=== PATIENT | female | born 2000 | race Two or more races ===

== ENCOUNTER 2025-03-23 07:29 | Emergency (ER) | payer OTHER ==
[~2025-03-23] VITALS: Ht 170.2 cm; Wt 68.5 kg
[2025-03-23 10:06] LABS: BASO % 0.9 % (0.1-1.2); EOS # 0.06 (0.04-0.54); EOS % 0.7 % (0.7-7.0); LYMPH # 1.82 (1.18-3.74); LYMPH % 22.2 % (19.3-53.1); MEAN PLATELET VOLUME 9.00 fl (9.4-12.4); MONO # 0.71 (0.24-0.82); MONO % 8.6 % (4.7-12.5); NEUT # 5.54 (1.56-6.13); NEUT % 67.5 % (34.0-71.1); RED CELL DISTRIBUTION WIDTH 13.1 % (11.6-14.4)
[2025-03-23 10:36] LABS: ALT/SGPT 27.0 U/L (12-78); AST/SGOT 13.0 U/L (15-37); BILIRUBIN TOTAL 0.69 mg/dL (0.3-1.2); BUN CREA RATIO 20.0 (7.0-25.0); CREATININE SERUM 0.85 mg/dL (0.55-1.02); GFR 80.84; GLOBULINA 4.0 G/DL (2.4-3.5); GLUCOSE FASTING 78.0 mg/dL (65-100); OSMOLALITY SERUM 280.0 MOSM/KG (275-295)
[2025-03-23 11:32] LABS: URINE APPEARANCE Clear; URINE BILIRRUBIN Negative (NEGATIVE); URINE BLOOD Negative; URINE COLOR Yellow; URINE GLUCOSE Negative (NEGATIVE); URINE KETONE Negative (NEGATIVE); URINE LEUKOCYTE Negative; URINE NITRATE Negative; URINE PROTEIN Negative (NEGATIVE); URINE UROBILINOGEN 0.2 E.U./dl
[2025-03-23 11:36] LABS: URINE BACTERIA 154.7 uL (0.0-1933); URINE EPITHELIAL CELLS 10.6 uL (0.0-38.8); URINE WBC 2.4 uL (0.0-23.2)
[2025-03-23 11:42] LABS: URINE CAST 0.00 uL (0.0-1.40); URINE RBC 0.5 uL (0.0-20.8)
[2025-03-23] MEDS ORDERED: KETOROLAC TROMETHAMINE 60 MG VIAL IM ONE (13:45)
== END 2025-03-23 08:23 | disposition home or self-care (01) ==
LOC: ER 07:29
PROVIDERS: Preventive Medicine Public Health & General Preventive Medicine
DX: R30.0 Dysuria (principal); N83.202 Unspecified ovarian cyst, left side; N83.201 Unspecified ovarian cyst, right side; K59.00 Constipation, unspecified

== ENCOUNTER 2025-04-22 07:45 | Outpatient (CLI) | payer OTHER | END 2025-04-22 07:47 | disposition home or self-care (01) | LOC: SONOGRAMA 07:45 | PROVIDERS: ATTEND Obstetrics & Gynecology | DX: Q44.6 Cystic disease of liver (principal) ==